=== PATIENT | female | born 1940 | race Caucasian/White ===

== ENCOUNTER 2016-08-10 20:38 | Inpatient (IN) | payer OTHER ==
[~2016-08-10] VITALS: Ht 160 cm; Wt 89.4 kg
[~2016-08-10 20:38] MED LIST: ACCUPRIL40 MG PO; ACTOS15 MG; ACTOS15 MG PO; ACTOS45 MG PO; ADVAIR 250/501 DISK IH; ALBUTEROL17 G1 IH; ALDACTONE25 MG PO; ANTIVERT25 MG PO; ASPIR 8181 M1 PO; ASPIRIN81 M1 PO; BREO ELLIPTA 21 EACH IH; CILOSTAZOL50 MG PO; CLONAZEPAM0.5 MG PO; CYANOCOBAL1000 MCG/2 IM; CYANOCOBALAM1000 MCG PO; CYANOCOBALAMIN; Ceftin PO; DESYREL100 MG PO; DULERA 200 MCG/13 GM IH; DUONEB 2.5-0.5 M3 ML AEROSOL; DUONEB 2.5-0.5 M3 ML IH; FUROSEMIDE20 MG PO; GLUCOPHAGE XR,500 MG PO; GLUCOPHAGE500 MG PO; HYDROCODON-ACE1 EAC8 PO; ISOSORBIDE MONO30 MG PO; JANUVIA100 MG; JANUVIA100 MG PO; KLONOPIN0.5 M1 PO; LANTUS (UNITS)1 UNIT SC; LANTUS 3 M100 UNITS1; LANTUS 3 M100 UNITS1 SC; LANTUS 3 M100 UNITS1 SQ; LASIX20 MG PO; LEVO-T150 MCG PO; LEVOTHROID,SYN0.2 MG PO; LEVOTHYROXINE; LEVOTHYROXINE125 MCG PO; LEVOTHYROXINE137 MCG PO; LIQUID B-11000 MCG/1 PO; LO-DOSE ASPIRIN81 M1 PO; LOPRESSOR100 M1 PO; LOPRESSOR25 MG PO; LORTAB 5-325 M1 EACH PO; LOW DOSE ASPIRI81 M1 PO; LYRICA150 MG; LYRICA150 MG PO; LYRICA200 MG PO; LYRICA50 MG PO; Levaquin PO; MAG-OXIDE400 MG PO; MAGNESIUM OXID400 MG PO; MAGNESIUM400 M1 PO; MAGOX 400400 MG PO; MECLIZINE HCL25 M3 PO; MECLIZINE HCL25 MG PO; METFORMIN HCL500 M1 PO; METFORMIN HCL500 MG PO; METFORMIN PO; METOPROLOL TAR100 MG; METOPROLOL TAR100 MG PO; METOPROLOL TART25 MG PO; NITROSTAT0.4 MG SL; NORCO 5-325 TA1 EACH PO; NORCO 7.5/321 TABLET PO; NORVASC5 MG PO; PERCOCET 7.51 TABLET PO; PLAVIX75 MG PO; PRAVACHOL20 MG PO; PRAVASTATIN SOD20 MG PO; PROTONIX40 MG PO; Proventil,Ventolin H IH; QUINAPRIL HCL40 MG; QUINAPRIL HCL40 MG PO; SERTRALINE HCL50 MG PO; SPIRIVA1 INHALATI; SPIRIVA1 INHALATI IH; SPIRONOLACTONE25 MG; SPIRONOLACTONE25 MG PO; SYNTHROID112 MCG PO; SYNTHROID125 MCG PO; SYNTHROID200 MCG PO; TIZANIDINE HCL4 M1 PO; TOVIAZ4 MG PO; TOVIAZ8 MG; TOVIAZ8 MG PO; TRAMADOL HCL50 MG PO; TRAZODONE HCL100 MG PO; TRAZODONE HCL50 MG; VENTOLIN HFA18 GM IH; VESICARE10 MG PO; VICTOZA0.6 MG/0.1 SC; VITAMIN D35000 UNIT PO; VITAMIN D5000 INTUN PO; VITAMIN D5000 UNI1 PO; VITAMIN D5000 UNIT PO; Vicodin,Norco 5/325 PO; Vitamin D PO; WELCHOL625 MG; WELCHOL625 MG PO; ZOCOR20 MG PO; ZOLOFT50 MG PO; Zocor PO
[2016-08-10 21:57] LABS: HEMATOCRIT 46.5 % (36.0-46.0); MCH 28.7 PG (29.0-34.0); MCHC 33.5 G/DL (30.0-36.0); MCV 85.6 FL (83-99); MEAN PLAT.VOLUME 11.7 uM^3 (9.5-12.4); PLATELET COUNT 194 K/uL (156-360); RBC DIS.WIDTH-CV 13.9 % (11.8-14.6); RBC DIS.WIDTH-SD 43.3 % (39-53); RED BLOOD COUNT 5.43 M/uL (3.80-5.20); WHITE BLOOD COUNT 10.2 K/uL (4.1-10.2)
[2016-08-10 22:03] LABS: ADD MIUA? YES; BILIRUBIN NEGATIVE; BLOOD SMALL; COLOR YELLOW ((YELLOW)); GLUCOSE (STRIP) >=500; KETONES NEGATIVE; LEUKOCYTES MODERATE; NITRITE POSITIVE; PROTEIN (STRIP) NEGATIVE; SPECIFIC GRAVITY 1.028 (1.000-1.030); UROBILINOGEN 0.2 MG/DL (0.2-1.0)
[2016-08-10 22:42] LABS: BACTERIA 3+ /HPF; EPITHELIAL CELLS 1+ /HPF; MUCUS 1+ /LPF; RED BLOOD CELLS 0-5 /HPF (0-5); WHITE BLOOD CELLS 20-30 /HPF (0-5)
[2016-08-10 23:21] LABS: CHLORIDE 104 mEq/L (99-109); POTASSIUM 3.9 mEq/L (3.7-5.4); SODIUM 138 mEq/L (136-147)
[2016-08-10 23:23] LABS: GLUCOSE 379 mg/dL (70-99)
[2016-08-10 23:24] LABS: ANION GAP 14 MEQ/L (2-14)
[2016-08-10 23:25] LABS: TOTAL BILIRUBIN 0.5 mg/dL (0.0-1.0)
[2016-08-10 23:26] LABS: ALKALINE PHOSPHATASE 50 IU/L (3-129)
[2016-08-10 23:27] LABS: GFR ESTIMATE (CALCULATED) 42 mL/min/
[2016-08-10 23:28] LABS: DIRECT BILIRUBIN 0.2 mg/dL (0.0-0.3); UREA NITROGEN (BUN) 34 mg/dL (9-23)
[2016-08-10 23:30] LABS: CREATINE KINASE 94 IU/L (1-294); LIPASE 34 U/L (1.0-51.0); TOTAL CK 94 IU/L (1-294)
[2016-08-10 23:38] LABS: CK-MB 1.1 ng/mL (0.0-4.9)
[2016-08-11 02:34] LABS: TROP-I INTERPRETATION NEGATIVE; TROPONIN-I 0.02 ng/mL (0.0-0.30)
[2016-08-11 03:57] VITALS: BP 98/54
[2016-08-11 06:23] LABS: HEMATOCRIT 37.7 % (36.0-46.0); MCH 30.3 PG (29.0-34.0); MCHC 34.7 G/DL (30.0-36.0); MCV 87.3 FL (83-99); MEAN PLAT.VOLUME 11.4 uM^3 (9.5-12.4); PLATELET COUNT 146 K/uL (156-360); RBC DIS.WIDTH-CV 13.8 % (11.8-14.6); RBC DIS.WIDTH-SD 44.4 % (39-53); WHITE BLOOD COUNT 8.7 K/uL (4.1-10.2)
[2016-08-11 06:25] LABS: RED BLOOD COUNT 4.32 M/uL (3.80-5.20)
[2016-08-11 06:43] LABS: ANION GAP 13 MEQ/L (2-14); CHLORIDE 107 MEQ/L (99-109); GFR ESTIMATE (CALCULATED) > 59 mL/min/; GLUCOSE 333 mg/dL (70-99); POTASSIUM 3.6 MEQ/L (3.7-5.4); SAMPLE HEMOLYSIS CHECK 0; SAMPLE ICTERIC CHECK 0; SAMPLE LIPEMIA CHECK 0; SODIUM 139 MEQ/L (136-147); UREA NITROGEN (BUN) 25 mg/dL (9-23)
[2016-08-11 07:42] VITALS: BP 131/69
[2016-08-11 08:18] LABS: TROP-I INTERPRETATION NEGATIVE; TROPONIN-I 0.03 ng/mL (0.0-0.30)
[2016-08-11 09:49] LABS: POINT-OF-CARE METER ID UU13113717
[2016-08-11] MEDS ORDERED: BREO ELLIPTA 21 EACH IH (10:04)
[2016-08-11] MEDS ORDERED: LO-DOSE ASPIRIN81 M2 PO (10:04)
[2016-08-11] MEDS ORDERED: VITAMIN D5000 UNI1 PO (10:05)
[2016-08-11] MEDS ORDERED: PLAVIX75 MG PO (10:06)
[2016-08-11] MEDS ORDERED: VENTOLIN HFA18 GM IH (10:06)
[2016-08-11] MEDS ORDERED: IMDUR30 MG PO (10:07)
[2016-08-11] MEDS ORDERED: LEVO-T150 MCG PO (10:08)
[2016-08-11] MEDS ORDERED: LANTUS 3 M100 UNITS1 SC (10:08)
[2016-08-11] MEDS ORDERED: LYRICA200 MG PO (10:08)
[2016-08-11] MEDS ORDERED: MAGNESIUM400 M1 PO (10:09)
[2016-08-11] MEDS ORDERED: LOPRESSOR25 MG PO (10:10)
[2016-08-11] MEDS ORDERED: METFORMIN HCL500 M4 PO (10:10)
[2016-08-11] MEDS ORDERED: PRAVACHOL20 MG PO (10:11)
[2016-08-11] MEDS ORDERED: NITROSTAT0.4 MG SL (10:11)
[2016-08-11] MEDS ORDERED: SPIRIVA1 INHALATI IH (10:14)
[2016-08-11] MEDS ORDERED: ZOLOFT50 MG PO (10:14)
[2016-08-11] MEDS ORDERED: ALDACTONE25 MG PO ×2 (10:15→10:16)
[2016-08-11] MEDS ORDERED: VESICARE10 MG PO (10:17)
[2016-08-11] MEDS ORDERED: ZANAFLEX4 M1 PO (10:17)
[2016-08-11] MEDS ORDERED: VICTOZA0.6 MG/0.1 SC (10:18)
[2016-08-11 12:05] VITALS: BP 119/69
[2016-08-11 12:55] LABS: POINT-OF-CARE METER ID UU13113717
[2016-08-11 13:28] LABS: TROP-I INTERPRETATION NEGATIVE; TROPONIN-I 0.02 ng/mL (0.0-0.30)
[2016-08-11 16:32] VITALS: BP 120/71
[2016-08-11 20:04] VITALS: BP 121/69
[2016-08-11 21:36] LABS: POINT-OF-CARE METER ID UU14174225
[2016-08-11 23:49] VITALS: BP 147/72
[2016-08-12 03:56] VITALS: BP 141/76
[2016-08-12 07:43] VITALS: BP 110/80
[2016-08-12 12:07] VITALS: BP 117/68
[2016-08-12 15:38] VITALS: BP 113/58
[2016-08-12 19:42] VITALS: BP 93/56
[2016-08-12 21:43] LABS: POINT-OF-CARE METER ID UU14174225
[2016-08-12 23:59] VITALS: BP 103/66
[2016-08-13 03:30] VITALS: BP 121/58
[2016-08-13 07:47] LABS: POINT-OF-CARE METER ID UU14174225
[2016-08-13 08:00] VITALS: BP 125/58
[2016-08-13 11:27] LABS: Estimated Average Glucose 301 mg/dL (70-123); HEMOGLOBIN A1c (GLYCOHEMOGLOB) 12.1 % HGB (Below 5.7)
[2016-08-13 11:52] LABS: POINT-OF-CARE METER ID UU14174225
[2016-08-13 11:58] VITALS: BP 116/57
[2016-08-13 15:54] VITALS: BP 106/63
[2016-08-13 19:34] VITALS: BP 142/67
[2016-08-13 21:54] LABS: POINT-OF-CARE METER ID UU13113717
[2016-08-14] VITALS: BP 177/97
[2016-08-14 03:38] VITALS: BP 120/66
[2016-08-14 07:54] VITALS: BP 115/61
[2016-08-14 11:36] VITALS: BP 132/63
[2016-08-14 16:11] VITALS: BP 121/67
[2016-08-14 22:00] LABS: POINT-OF-CARE METER ID UU13113717
[2016-08-15 00:09] VITALS: BP 114/64
[2016-08-15 08:44] VITALS: BP 167/92
[2016-08-15 08:49] LABS: POINT-OF-CARE METER ID UU14174225
[2016-08-15] MEDS ORDERED: CEFDINIR300 MG PO (08:55)
[2016-08-15] MEDS ORDERED: ZOLOFT50 MG PO (11:55)
[2016-08-15] MEDS ORDERED: CILOSTAZOL50 MG PO (12:18)
[2016-08-15 16:04] VITALS: BP 113/71
[2016-08-15 17:05] LABS: POINT-OF-CARE METER ID UU14174225
== END 2016-08-15 18:40 | disposition home health service (06) | DRG 71 ==
LOC: EME 20:38 → EDOF 08-11 01:36 → 5SOUTH 08-11 01:36
PROVIDERS: Emergency Medicine; Hospitalist; Internal Medicine; Physician Assistant Medical
DX: G93.41 Metabolic encephalopathy (principal); N30.00 Acute cystitis without hematuria; I11.0 Hypertensive heart disease with heart failure; J44.9 Chronic obstructive pulmonary disease, unspecified; E86.0 Dehydration; E03.9 Hypothyroidism, unspecified; E11.40 Type 2 diabetes mellitus with diabetic neuropathy, unspecified; E87.2 Acidosis; E78.5 Hyperlipidemia, unspecified; I25.2 Old myocardial infarction; I50.30 Unspecified diastolic (congestive) heart failure; I48.91 Unspecified atrial fibrillation; I25.10 Atherosclerotic heart disease of native coronary artery without angina pectoris; I70.213 Atherosclerosis of native arteries of extremities with intermittent claudication, bilateral legs; K58.9 Irritable bowel syndrome, unspecified; E66.9 Obesity, unspecified; Z68.34 Body mass index [BMI] 34.0-34.9, adult; E11.65 Type 2 diabetes mellitus with hyperglycemia; Z79.4 Long term (current) use of insulin; Z87.891 Personal history of nicotine dependence
CPT/HCPCS: 70450; 71020; 74176; 80048; 80076; 81003; 82550; 82553; 82607; 82948; 83036; 83605; 83690; 84443; 84484; 85027; 87040; 87077; 87086; 87186; 87493; 93005; 93925; 94640; 94640 76; 95819; 99202; 99281; 99285; J0696; J1644; J1815; J7030; J7050

== ENCOUNTER 2016-11-24 13:32 | Observation (INO) | payer OTHER ==
[~2016-11-24] VITALS: Ht 160 cm; Wt 89.2 kg
[~2016-11-24 13:32] MED LIST changes: +CEFDINIR300 MG PO; +IMDUR30 MG PO; +LO-DOSE ASPIRIN81 M2 PO; +LYRICA75 MG PO; +METFORMIN HCL500 M4 PO; +ZANAFLEX4 M1 PO
[2016-11-24 14:03] LABS: HEMATOCRIT 41.9 % (36.0-46.0); MCH 28.5 PG (29.0-34.0); MCHC 34.1 G/DL (30.0-36.0); MCV 83.5 FL (83-99); MEAN PLAT.VOLUME 10.8 uM^3 (9.5-12.4); PLATELET COUNT 200 K/uL (156-360); RBC DIS.WIDTH-CV 13.8 % (11.8-14.6); RBC DIS.WIDTH-SD 41.8 % (39-53); RED BLOOD COUNT 5.02 M/uL (3.80-5.20); WHITE BLOOD COUNT 9.3 K/uL (4.1-10.2)
[2016-11-24 14:11] LABS: CHLORIDE 103 mEq/L (99-109); POTASSIUM 4.2 mEq/L (3.7-5.4); SODIUM 136 mEq/L (136-147)
[2016-11-24 14:13] LABS: GLUCOSE 267 mg/dL (70-99)
[2016-11-24 14:15] LABS: ANION GAP 16 MEQ/L (2-14)
[2016-11-24 14:17] LABS: GFR ESTIMATE (CALCULATED) 46 mL/min/
[2016-11-24 14:18] LABS: UREA NITROGEN (BUN) 16 mg/dL (9-23)
[2016-11-24 14:23] LABS: TROP-I INTERPRETATION NEGATIVE; TROPONIN-I 0.02 ng/mL (0.0-0.30)
[2016-11-24 15:19] LABS: CARBON DIOXIDE (BICARBONATE) 27.9 MEQ/L (20-31)
[2016-11-24 17:20] LABS: CHLORIDE 100 mEq/L (99-109); POTASSIUM 3.6 mEq/L (3.7-5.4); SODIUM 137 mEq/L (136-147)
[2016-11-24 17:21] LABS: GLUCOSE 193 mg/dL (70-99)
[2016-11-24 17:23] LABS: ANION GAP 15 MEQ/L (2-14)
[2016-11-24 17:25] LABS: GFR ESTIMATE (CALCULATED) 57 mL/min/
[2016-11-24 17:26] LABS: UREA NITROGEN (BUN) 13 mg/dL (9-23)
[2016-11-24 21:28] VITALS: BP 140/66
[2016-11-24 21:33] LABS: POINT-OF-CARE METER ID UU13113700
[2016-11-24 23:24] VITALS: BP 149/70
[2016-11-25 02:20] LABS: TROP-I INTERPRETATION NEGATIVE; TROPONIN-I 0.02 ng/mL (0.0-0.30)
[2016-11-25 05:00] VITALS: BP 100/66
[2016-11-25 08:18] VITALS: BP 142/67
[2016-11-25 08:56] LABS: POINT-OF-CARE METER ID UU13113831
[2016-11-25 11:43] LABS: POINT-OF-CARE METER ID UU13113831
[2016-11-25 16:36] VITALS: BP 120/57
== END 2016-11-25 16:54 | disposition home or self-care (01) ==
LOC: EME 13:32 → EDOF 19:35 → 5WEST 19:35 → ENRESERV 19:54 → 5WEST 21:01
PROVIDERS: Emergency Medicine; Internal Medicine; Physician Assistant Medical
DX: M54.12 Radiculopathy, cervical region (principal); I25.10 Atherosclerotic heart disease of native coronary artery without angina pectoris; I25.2 Old myocardial infarction; Z95.5 Presence of coronary angioplasty implant and graft; I44.7 Left bundle-branch block, unspecified; E11.65 Type 2 diabetes mellitus with hyperglycemia; I11.0 Hypertensive heart disease with heart failure; I50.32 Chronic diastolic (congestive) heart failure; E78.5 Hyperlipidemia, unspecified; I48.0 Paroxysmal atrial fibrillation; J44.9 Chronic obstructive pulmonary disease, unspecified; K21.9 Gastro-esophageal reflux disease without esophagitis; G89.29 Other chronic pain; M54.5 Low back pain; M19.90 Unspecified osteoarthritis, unspecified site; E55.9 Vitamin D deficiency, unspecified; E03.9 Hypothyroidism, unspecified; Z87.891 Personal history of nicotine dependence; Z79.82 Long term (current) use of aspirin; Z79.4 Long term (current) use of insulin; E11.40 Type 2 diabetes mellitus with diabetic neuropathy, unspecified; Z90.49 Acquired absence of other specified parts of digestive tract; Z80.0 Family history of malignant neoplasm of digestive organs; Z82.3 Family history of stroke; Z83.3 Family history of diabetes mellitus; Z80.1 Family history of malignant neoplasm of trachea, bronchus and lung; Z91.040 Latex allergy status
CPT/HCPCS: 71020; 72141; 80048; 80048 91; 82803; 82948; 84484; 85027; 93005; 94640; 99202; 99281; 99285; G0378; G8978 GP CJ; G8979 GP CI; G8980 CJ; G8987 GO CJ; G8988 GO CH; G8989 CJ; J1644; J1815; J7030